=== PATIENT | male | born 2000 | race Caucasian/White ===

== ENCOUNTER 2022-08-04 14:24 | Emergency (ER) | payer OTHER, SELFPAY ==
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
[2022-08-04 14:31] VITALS: BP 140/80; PULSE 90; O2SAT 98
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
[2022-08-04 15:15] VITALS: BP 127/80; PULSE 80; RESP 18; TEMP 36.6; O2SAT 100; BMI 23.0
== END 2022-08-04 17:10 | disposition home or self-care (01) ==
PROVIDERS: Emergency Provider Emergency Medicine
DX: S39.012A Strain of muscle, fascia and tendon of lower back, initial encounter (principal); S16.1XXA Strain of muscle, fascia and tendon at neck level, initial encounter; V43.52XA Car driver injured in collision with other type car in traffic accident, initial encounter; Y93.89 Activity, other specified; Y92.414 Local residential or business street as the place of occurrence of the external cause; Y99.9 Unspecified external cause status
CPT/HCPCS: 72100; 99283